=== PATIENT | female | born 1980 | race Hispanic/Latino ===

== ENCOUNTER 2020-09-14 17:31 | Observation (INO) | payer OTHER ==
[~2020-09-14] VITALS: Ht 162.6 cm; Wt 72.6 kg
[2020-09-14 18:35] LABS: BASOPHILS % (AUTO) 0.8 % (0.0-5.0); EOSINOPHILS % (AUTO) 2.2 % (0.0-8.0); LYMPHOCYTES % (AUTO) 28.1 % (21.0-51.0); MEAN CORPUSCULAR HEMOGLOBIN 17.4 pg (27.0-33.0); MEAN CORPUSCULAR HGB CONC 27.9 g/dL (32.0-36.0); MEAN CORPUSCULAR VOLUME 62.3 fL (79-99); MONOCYTES % (AUTO) 7.9 % (3.0-13.0); NEUTROPHILS % (AUTO) 60.7 % (40.0-77.0); PLATELET COUNT (AUTO) 233 K/uL (130-400); RED BLOOD CELL COUNT(AUTO) 3.85 MIL/uL (4.00-5.50); RED CELL DISTRIBUTION WIDTH 20.5 % (11.0-15.5); WHITE BLOOD COUNT (AUTO) 6.5 K/uL (4.8-10.8)
[2020-09-14 18:46] LABS: APPEARANCE,URINE CLOUDY (CLEAR); BILIRUBIN,URINE NEGATIVE (NEGATIVE); COLOR,URINE ORANGE (YELLOW); GLUCOSE, URINE (UA) NEGATIVE (NEGATIVE); KETONES,URINE NEGATIVE (NEGATIVE); LEUKOCYTE ESTERASE ,URINE TRACE (NEGATIVE); NITRATE,URINE NEGATIVE (NEGATIVE); OCCULT BLOOD,URINE LARGE (NEGATIVE); PH,URINE 8.5 (5.0-8.0); PROTEIN,URINE TRACE mg/dL (NEGATIVE); UROBILINOGEN,URINE 0.2 mg/dL (0.2-1.0)
[2020-09-14 18:49] LABS: CREATININE 0.7 mg/dL (0.5-1.5); POTASSIUM 3.6 mmol/L (3.5-5.1)
[2020-09-14 18:49] LABS: HCG,QUAL RESULT NEGATIVE (NEGATIVE)
[2020-09-14 18:51] LABS: INR 1.04 (0.85-1.15); PROTHROMBIN TIME 11.3 SEC (9.6-11.6)
[2020-09-14 18:51] LABS: BACTERIA,URINE Rare /HPF (None Seen)
[2020-09-14 18:52] LABS: PARTIAL THROMBOPLASTIN TIME 25.6 SEC (26.3-35.5)
[2020-09-14 18:52] LABS: RBC,URINE TNTC /HPF (0-1); SQUAMOUS EPITHELIAL CELL,UR Few /HPF (0-2); TRANSITIONAL EPI CELLS,URINE Few /HPF (None Seen)
[2020-09-14 18:54] LABS: ALBUMIN 3.4 g/dL (3.5-5.0); BILIRUBIN,TOTAL 0.4 mg/dL (0.2-1.0); TOTAL PROTEIN, SERUM 7.6 g/dL (6.0-8.3)
[2020-09-14] MEDS ORDERED: KETOROLAC TROMETHAMINE 30MG/ML ONE (19:45)
[2020-09-14] MEDS ORDERED: DEXTROSE 5%-LACTATED RINGERS 1,000 ML IV ONE (21:08)
[2020-09-14 21:49] VITALS: BP 125/65
[2020-09-14] MEDS: ESTROGENS CONJUGATED IVP SCH (22:00)
[2020-09-14] MEDS: DEXTROSE 5%-LACTATED RINGERS 1,000 ML IV SCH (22:00)
[2020-09-14] MEDS: SODIUM CHLORIDE 0.9% IVP SCH (22:00)
[2020-09-14 23:15] VITALS: BP 119/63
[2020-09-15] VITALS: BP 116/71
[2020-09-15] MEDS ORDERED: ROCURONIUM 10MG/1ML SYR 10 MG/ML ML ONE (02:32)
[2020-09-15 03:23] VITALS: BP 111/62
[2020-09-15] MEDS: DEXTROSE 5%-LACTATED RINGERS 1,000 ML IV SCH (06:01)
[2020-09-15 06:27] LABS: HEMATOCRIT 30.4 % (36-48); MEAN CORPUSCULAR HEMOGLOBIN 20.4 pg (27.0-33.0); MEAN CORPUSCULAR HGB CONC 30.6 g/dL (32.0-36.0); MEAN CORPUSCULAR VOLUME 66.8 fL (79-99); RED BLOOD CELL COUNT(AUTO) 4.55 MIL/uL (4.00-5.50); RED CELL DISTRIBUTION WIDTH 24.1 % (11.0-15.5); WHITE BLOOD COUNT (AUTO) 8.5 K/uL (4.8-10.8)
[2020-09-15 07:15] VITALS: BP 104/54
[2020-09-15] MEDS: ESTROGENS CONJUGATED IVP SCH (10:23)
[2020-09-15] MEDS: SODIUM CHLORIDE 0.9% IVP SCH (10:23)
[2020-09-15] MEDS ORDERED: NORETHINDRONE-ETHINYL ESTRAD 1 TABLET PO SCH (10:45)
[2020-09-15 11:10] VITALS: BP 111/65
== END 2020-09-15 13:05 | disposition home or self-care (01) ==
LOC: EDH 17:31 → EDHIP 17:32 → WSH 21:35
PROVIDERS: ADMIT Obstetrics & Gynecology; ATTEND Obstetrics & Gynecology
DX: D64.9 Anemia, unspecified (principal); N92.0 Excessive and frequent menstruation with regular cycle; Z90.49 Acquired absence of other specified parts of digestive tract
CPT/HCPCS: 36415 ×2; 36430 ×2; 76856; 80053; 81001; 81025; 85025; 85027; 85610; 85730; 86850; 86900; 86901; 86923; 96361; 96365; 96366; 99284; G0378 ×13; J1410 ×2; J1885; J3490; P9016 ×2